=== PATIENT | female | born 1990 | race Caucasian/White ===

== ENCOUNTER 2021-12-20 01:25 | Emergency (ER) | payer MEDICAID ==
[~2021-12-20] VITALS: Ht 157.5 cm; Wt 68.0 kg
[2021-12-20 01:30] VITALS: BP_SYST 144
[2021-12-20 02:22] LABS: BASOPHILS % (AUTO) 0.3 % (0.0-2.0); EOSINOPHILS # (AUTO) 0.1 K/uL (0.0-0.4); EOSINOPHILS % (AUTO) 1.5 % (0.0-4.0); HEMATOCRIT 36.7 % (36-48); HEMOGLOBIN 12.3 g/dL (12.0-16.0); LYMPHOCYTES % (AUTO) 43.9 % (20.5-51.5); MEAN CORPUSCULAR HEMOGLOBIN 26 pg (27-31); MEAN CORPUSCULAR HGB CONC 34 % (32-36); MEAN CORPUSCULAR VOLUME 78 fL (79.0-98.0); MONOCYTES # (AUTO) 0.4 K/uL (0.0-1.0); MONOCYTES % (AUTO) 8.6 % (1.7-9.3); NEUTROPHILS # (AUTO) 2.1 K/uL (1.8-7.7); NEUTROPHILS % (AUTO) 45.7 % (40.0-70.0); PLATELET COUNT (AUTO) 197 K/uL (130-430); RED BLOOD CELL COUNT(AUTO) 4.71 MIL/uL (4.2-6.2); RED CELL DISTRIBUTION WIDTH 14.9 % (9.0-15.0); WHITE BLOOD COUNT (AUTO) 4.7 K/uL (4.8-10.8)
[2021-12-20] MEDS ORDERED: ONDA4TAB55 PO (02:25)
[2021-12-20] MEDS ORDERED: DULO20CA PO (02:27)
[2021-12-20] MEDS ORDERED: FERR-69 PO (02:30)
[2021-12-20] MEDS ORDERED: MEDR10TA72 PO (02:33)
[2021-12-20] MEDS ORDERED: ASCO500T20 PO (02:33)
[2021-12-20] MEDS ORDERED: HYDR200T80 PO (02:33)
[2021-12-20] MEDS ORDERED: DOCU-144 PO (02:33)
[2021-12-20] MEDS ORDERED: VITD2000 PO (02:35)
[2021-12-20 02:42] LABS: ANION GAP 7 (5-15); CALCIUM 8.8 mg/dL (8.4-11.0); CHLORIDE 104 mmol/L (98-107); CREATININE 0.69 mg/dL (0.55-1.30); GLUCOSE 100 mg/dL (70-99); POTASSIUM 3.7 mmol/L (3.5-5.1); SODIUM SERUM 139 mmol/L (136-145); UREA NITROGEN, BLOOD 18 mg/dL (8-21)
[2021-12-20 02:50] LABS: ALANINE AMINOTRANSFERASE 23 U/L (12-78); ALBUMIN 3.9 g/dL (3.4-4.8); ASPARTATE AMINOTRANSFERASE 17 U/L (10-37); TOTAL BILIRUBIN 0.2 mg/dL (0.0-1.0)
[2021-12-20 02:52] LABS: GFR AFRICAN AMERICAN 127 mL/min (>90)
[2021-12-20 03:15] VITALS: BP_SYST 120
== END 2021-12-20 03:15 | disposition home or self-care (01) ==
LOC: SED 01:25
DX: R07.9 Chest pain, unspecified (principal); Z79.899 Other long term (current) drug therapy
CPT/HCPCS: 36415; 71045; 80053; 83880; 84484; 85025; 85379; 93005; 99285

== ENCOUNTER 2022-02-27 17:45 | Emergency (ER) | payer MEDICAID ==
[~2022-02-27] VITALS: Ht 160 cm; Wt 68.0 kg
[~2022-02-27 17:45] MED LIST: ASCO500T20 PO; DOCU-144 PO; DULO20CA PO; FERR-69 PO; HYDR200T80 PO; MEDR10TA72 PO; ONDA4TAB55 PO; VITD2000 PO
[2022-02-27 17:54] VITALS: BP_SYST 123
[2022-02-27 20:41] LABS: BASOPHILS % (AUTO) 0.5 % (0.0-2.0); EOSINOPHILS % (AUTO) 0.5 % (0.0-4.0); HEMATOCRIT 41.4 % (36-48); HEMOGLOBIN 13.6 g/dL (12.0-16.0); LYMPHOCYTES # (AUTO) 0.7 K/uL (1.0-5.5); LYMPHOCYTES % (AUTO) 9.6 % (20.5-51.5); MEAN CORPUSCULAR HEMOGLOBIN 26 pg (27-31); MEAN CORPUSCULAR HGB CONC 33 % (32-36); MEAN CORPUSCULAR VOLUME 79 fL (79.0-98.0); MONOCYTES # (AUTO) 0.5 K/uL (0.0-1.0); NEUTROPHILS # (AUTO) 5.9 K/uL (1.8-7.7); NEUTROPHILS % (AUTO) 82.4 % (40.0-70.0); PLATELET COUNT (AUTO) 205 K/uL (130-430); RED BLOOD CELL COUNT(AUTO) 5.25 MIL/uL (4.2-6.2); RED CELL DISTRIBUTION WIDTH 15.3 % (9.0-15.0); WHITE BLOOD COUNT (AUTO) 7.1 K/uL (4.8-10.8)
[2022-02-27 21:00] LABS: CALCIUM 9.1 mg/dL (8.4-11.0); CREATININE 0.66 mg/dL (0.55-1.30)
[2022-02-27 21:06] LABS: ALBUMIN 4.3 g/dL (3.4-4.8); TOTAL BILIRUBIN 0.2 mg/dL (0.0-1.0)
--- NOTE | 2022-02-27 22:18 | NUR ---
ER examining patient in the triage room.
[2022-02-27] MEDS ORDERED: KETOROLAC TROMETHAMINE 60 MG/2 ML VIAL IM ONE (23:15)
[2022-02-27] MEDS ORDERED: NACL 0.9% 1,000 ML IV ONE (23:15)
--- NOTE | 2022-02-27 23:54 | NUR ---
Patient to ER bed 2 to gown for evaluation. Side rails up. Report given to PAUL KEENE(REG).
[2022-02-28] MEDS ORDERED: NACL 0.9% 1,000 ML IV ONE (01:45)
[2022-02-28] MEDS ORDERED: ONDA-8 TL (03:53)
[2022-02-28 04:32] VITALS: BP_SYST 133
== END 2022-02-28 04:25 | disposition home or self-care (01) ==
LOC: SED 17:45
DX: J06.9 Acute upper respiratory infection, unspecified (principal); R19.7 Diarrhea, unspecified; R53.1 Weakness; R11.0 Nausea; Z88.1 Allergy status to other antibiotic agents; Z88.2 Allergy status to sulfonamides; Z91.011 Allergy to milk products; Z79.899 Other long term (current) drug therapy
CPT/HCPCS: 99284; 80053; 84702; 83690; 85025; 36415; 96360; 96361; 93005; 81025; 96372; J1885; J7030

== ENCOUNTER 2022-07-29 13:49 | Emergency (ER) | payer MEDICAID ==
[~2022-07-29] VITALS: Ht 157.5 cm; Wt 71.7 kg
[~2022-07-29 13:49] MED LIST changes: +ONDA-8 TL
[2022-07-29 13:54] VITALS: BP_SYST 129
[2022-07-29 15:43] LABS: BASOPHILS % (AUTO) 0.3 % (0.0-2.0); EOSINOPHILS # (AUTO) 0.1 K/uL (0.0-0.4); HEMATOCRIT 39.3 % (36-48); HEMOGLOBIN 12.9 g/dL (12.0-16.0); LYMPHOCYTES # (AUTO) 1.5 K/uL (1.0-5.5); MEAN CORPUSCULAR HEMOGLOBIN 26 pg (27-31); MEAN CORPUSCULAR HGB CONC 33 % (32-36); MEAN CORPUSCULAR VOLUME 79 fL (79.0-98.0); MONOCYTES # (AUTO) 0.4 K/uL (0.0-1.0); MONOCYTES % (AUTO) 7.2 % (1.7-9.3); NEUTROPHILS # (AUTO) 3.5 K/uL (1.8-7.7); NEUTROPHILS % (AUTO) 63.5 % (40.0-70.0); PLATELET COUNT (AUTO) 210 K/uL (130-430); RED BLOOD CELL COUNT(AUTO) 4.94 MIL/uL (4.2-6.2); WHITE BLOOD COUNT (AUTO) 5.5 K/uL (4.8-10.8)
[2022-07-29 16:01] LABS: PROTHROMBIN TIME 10.1 SECS (9.5-12.5)
[2022-07-29 16:04] LABS: ALBUMIN 3.8 g/dL (3.4-4.8); CALCIUM 8.6 mg/dL (8.4-11.0); CREATININE 0.63 mg/dL (0.55-1.30); TOTAL BILIRUBIN 0.3 mg/dL (0.0-1.0)
[2022-07-29 16:53] VITALS: BP_SYST 110
== END 2022-07-29 16:50 | disposition home or self-care (01) ==
LOC: SED 13:49
DX: N92.0 Excessive and frequent menstruation with regular cycle (principal); N93.9 Abnormal uterine and vaginal bleeding, unspecified; R10.30 Lower abdominal pain, unspecified; Z88.1 Allergy status to other antibiotic agents; Z88.2 Allergy status to sulfonamides; Z91.018 Allergy to other foods; Z79.899 Other long term (current) drug therapy
CPT/HCPCS: 36415; 80053; 81025; 84702; 85025; 85610-TC; 85730-TC; 99283